=== PATIENT | female | born 1960 | race Caucasian/White ===

== ENCOUNTER 2017-03-07 05:13 | Emergency (ER) | payer OTHER ==
[2017-03-07 05:21] VITALS: BP 135/89; PULSE 74; RESP 18; TEMP 97
--- NOTE | 2017-03-07 05:37 | ED ---
General Adult HPI - General Chief complaint: Wound/Laceration Stated complaint: Open Operation Site Time Seen by Provider: 03/07/17 05:26 Source: patient, family, RN notes reviewed Mode of arrival: ambulatory Limitations: no limitations - History of Present Illness Initial comments: 56 female presents for wound evaluation. Patient had gastric surgery on January 11. This was laparoscopic. 2 weeks after the operation she did have one of her laparoscopic wounds open. His been giving her small amount of pain with some pink drainage. Patient did see her surgeon about this several weeks postoperatively. Over the past 24 hours. There is pain some sharp pain, and clear drainage from the site. No fever or chills. Patient is having normal bowel movements. No vomiting. She has been placing a bandage over the incision. Patient had called her surgeon who recommended ER evaluation as he was not able to visualize the incision. - Related Data Home Medications Medication Instructions Recorded Confirmed Albuterol Inhaler [Ventolin 2 puff INHALATION RT-Q6H PRN 03/07/15 05/22/15 Inhaler] Ascorbic Acid [Vitamin C] 1,000 mg PO DAILY 03/07/15 05/22/15 Cholecalciferol [Vitamin D3] 5,000 unit PO DAILY 03/07/15 05/22/15 Furosemide [Furosemide] 20 mg PO DAILY 03/07/15 05/22/15 LORazepam [LORazepam] 2 mg PO HS 03/07/15 05/22/15 Venlafaxine HCl ER [Effexor XR] 150 mg PO QAM 03/07/15 05/22/15 glipiZIDE [Glipizide] 10 mg PO QAM 03/07/15 05/22/15 Nitroglycerin 1 spray TL Q5M PRN 03/11/15 05/22/15 Heron 1 tab PO DAILY 03/11/15 05/22/15 Venlafaxine HCl [Effexor XR] 75 mg PO QAM 03/11/15 05/22/15 Vits A,C,E/Lutein/Minerals 1 tab PO BID 03/11/15 05/22/15 [Ocuvite with Lutein Tablet] clonazePAM [KlonoPIN] 0.75 mg PO QID 03/11/15 05/22/15 Ferrous Gluconate 325 mg PO DAILY 05/22/15 05/22/15 Potassium Gluconate 99 mg PO DAILY 05/22/15 05/22/15 RABEprazole SODIUM 20 mg PO QAM 05/22/15 05/22/15 Rosuvastatin Calcium [Crestor] 10 mg PO DAILY 05/22/15 05/22/15 lamoTRIgine [LaMICtal] 25 mg PO HS 05/22/15 05/22/15 lamoTRIgine [LaMICtal] 100 mg PO HS 05/22/15 05/22/15 Ferrous Gluconate 324 mg PO DAILY 03/07/17 03/07/17 Trandolapril [Mavik] 1 mg PO DAILY 03/07/17 03/07/17 Previous Rx's Medication Instructions Recorded HYDROcodone/APAP 7.5-325MG [[place] 1 - 2 each PO Q6H PRN #90 tab 03/12/15 7.5-325] HYDROcodone/APAP 10-325MG [[place] 1 - 2 tab PO Q4HR PRN #60 tab 05/26/15 10] Allergies Allergy/AdvReac Type Severity Reaction Status Date / Time codeine Allergy Rash/Hives Verified 03/07/17 05:21 oxycodone HCl [From Percocet] Allergy Itching Verified 03/07/17 05:21 Penicillins Allergy Dyspnea Verified 03/07/17 05:21 Review of Systems ROS Statement: Those systems with pertinent positive or pertinent negative responses have been documented in the HPI. ROS Other: All systems not noted in ROS Statement are negative. Past Medical History Past Medical History: Cancer, Chest Pain / Angina, Diabetes Mellitus, GERD/ Reflux, Hyperlipidemia, Hypertension Additional Past Medical History / Comment(s): HX OF SKIN CA. 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,CURRENTLY HAVING LT KNEE PAIN History of Any Multi-Drug Resistant Organisms: None Reported Past Surgical History: Bariatric Surgery, Cholecystectomy, Hernia Repair, Hysterectomy, Joint Replacement, Orthopedic Surgery Additional Past Surgical History / Comment(s): BASAL CELL CA ON FACE REMOVED, TOTAL RIGHT KNEE, HX OF "STOMACH STAPLING", RT AXILLA GLANDS REMOVED BENIGN, HX OF ARTHROSCOPY LORENZO KNEES,TOT LT KNEE,STOMACH STAPLING Past Anesthesia/Blood Transfusion Reactions: No Reported Reaction Additional Past Anesthesia/Blood Transfusion Reaction / Comment(s): UNK FAMILY HX Past Psychological History: Bipolar, Depression Smoking Status: Never smoker Past Alcohol Use History: None Reported Past Drug Use History: None Reported - Past Family History Brother(s) Family Medical History: Cancer Additional Family Medical History / Comment(s): COLON Mother History Unknown: Yes Family Medical History: Unable to Obtain Additional Family Medical History / Comment(s): PATIENT WAS ADOPTED, DOES NOT KNOW FAMILY HX OTHER THAN BROTHER Father History Unknown: Yes General Exam Limitations: no limitations General appearance: alert, in no apparent distress Head exam: Present: atraumatic, normocephalic Eye exam: Present: normal appearance, PERRL ENT exam: Present: normal exam, mucous membranes moist Neck exam: Present: normal inspection. Absent: tenderness, meningismus Respiratory exam: Present: normal lung sounds bilaterally. Absent: respiratory distress Cardiovascular Exam: Present: regular rate, normal rhythm GI/Abdominal exam: Present: soft. Absent: distended, tenderness (Upper scopic incisions, 3 out of 4 incisions are well healing. Incision in the left upper quadrant does have 2 mm of surrounding erythema, granulation tissue within an open incision. This is approximately 1 cm in length. No signs of infection or surrounding cellulitis) Course Vital Signs 03/07/17 05:16 Temperature 97 F L Pulse Rate 74 Respiratory 18 Rate Blood Pressure 135/89 O2 Sat by Pulse 97 Oximetry Medical Decision Making - Medical Decision Making 56 female presents for evaluation of nonhealing surgical incision. She did have laparoscopic surgery. There is 2 mm of surrounding erythema on the left upper quadrant laparoscopic incision, this wound did dehisce several weeks ago. This is only at the level the skin. There is no surrounding cellulitic changes, no purulent drainage, there is some granulation tissue within. Remainder abdominal examination is unremarkable, patient is afebrile vital signs are stable Patient is informed that this is probably normal healing process. She does have an appointment with her primary care physician in 2 days and will have the wound reevaluated. She is also instructed to follow-up with her surgeon for wound evaluation. Diagnosis: Surgical wound evaluation Disposition Clinical Impression: Surgical wound breakdown Disposition: HOME SELF-CARE Condition: Good Instructions: Wound Dehiscence (ED) Additional Instructions: Return for wound evaluation with worsening erythema, drainage, or fever or chills. Referrals: Carlo Martinez MD [Primary Care Provider] - 1-2 days
== END 2017-03-07 05:44 | disposition home or self-care (01) ==
LOC: EC 05:13
DX: K91.89 Other postprocedural complications and disorders of digestive system (principal); E11.9 Type 2 diabetes mellitus without complications; E78.5 Hyperlipidemia, unspecified; I10 Essential (primary) hypertension; D64.9 Anemia, unspecified; F41.9 Anxiety disorder, unspecified; F32.9 Major depressive disorder, single episode, unspecified; K21.9 Gastro-esophageal reflux disease without esophagitis; Z88.5 Allergy status to narcotic agent; Z88.0 Allergy status to penicillin; Z90.49 Acquired absence of other specified parts of digestive tract; Z85.828 Personal history of other malignant neoplasm of skin; Z79.84 Long term (current) use of oral hypoglycemic drugs; Z79.899 Other long term (current) drug therapy; Y83.8 Other surgical procedures as the cause of abnormal reaction of the patient, or of later complication, without mention of misadventure at the time of the procedure
CPT/HCPCS: 99283

== ENCOUNTER → 2018-01-24 | Outpatient (CLI) | payer OTHER ==
[~2018-01-24] MED LIST: REGADENOSON 0.4 MG/5 ML SYRINGE IV ONE
--- NOTE | 2018-01-24 10:57 | ECHOF ---
Referral Reason:I10 Hypertension, R07.9 Chest pain, R01.1 murmur MEASUREMENTS -------- HEIGHT: 152.4 cm WEIGHT: 96.6 kg BP: RVIDd: 2.4 cm (< 3.3) IVSd: 0.7 cm (0.6 - 1.1) LVIDd: 4.1 cm (3.9 - 5.3) LVPWd: 1.1 cm (0.6 - 1.1) IVSs: 1.1 cm LVIDs: 3.6 cm LVPWs: 0.9 cm LAESV Index (A-L): 28.52 ml/m Ao Diam: 2.7 cm (2.0 - 3.7) AV Cusp: 1.8 cm (1.5 - 2.6) LA Diam: 3.2 cm (2.7 - 3.8) MV EXCURSION: 10.412 mm (> 18.000) MV EF SLOPE: 79 mm/s (70 - 150) EPSS: 0.6 cm MV E Sunday: 0.67 m/s MV A Sunday: 0.73 m/s MV E/A Ratio: 0.91 RAP: 5.00 mmHg RVSP: 17.21 mmHg FINDINGS -------- Sinus rhythm. This was a technically good study. LV size, wall thickness and systolic function are normal, with an EF greater than 55%. The left sylvain tricular size is normal. The right ventricle is normal in size. The left atrial size is normal. The right atrial size is normal. The aortic valve is trileaflet, and appears structurally normal. No aortic stenosis or regurgitation. Mild mitral regurgitation is present. Mild tricuspid regurgitation present. The right ventricular systolic pressure, as measured by Doppl er, is 17.21mmHg. There is no pulmonic regurgitation present. The aortic root size is normal. There is no pericardial effusion. CONCLUSIONS -------- 1. LV size, wall thickness and systolic function are normal, with an EF greater than 55%. 2. The left ventricular size is normal. 3. The right ventricle is normal in size. 4. The left atrial size is normal. 5. The right atrial size is normal. 6. The aortic valve is trileaflet, and appears structurally normal. No aortic stenosis or regurgitati on. 7. Mild mitral regurgitation is present. 8. Mild tricuspid regurgitation present. 9. The right ventricular systolic pressure, as measured by Doppler, is 17.21mmHg. 10. There is no pulmonic regurgitation present. 11. The aortic root size is normal. 12. There is no pericardial effusion. POLE INCISOR OPERATOR: Milena Pickens RDCS
--- NOTE | 2018-01-24 11:25 | EST ---
EXERCISE STRESS AGE: 57 SEX: Female HT: 61" WT: 213 PROTOCOL: Lexiscan Cardiolite STAGE: DURATION OF EXERCISE: HEART RATE REST: 65 BLOOD PRESSURE REST: 101/61 MAXIMUM HEART RATE ACHIEVED: 87 MAXIMUM BLOOD PRESSURE: 120/72 85% MPHR: 100% MPHR: METS: INDICATIONS: History of chest pain. CLINICAL INFORMATION: Baseline heart rate 65 beats per minute. Baseline blood pressure 101/61 mmHg. Baseline 12-lead ECG shows normal sinus rhythm with normal cardiac intervals. Patient received Lexiscan infusion per protocol. There was no significant change in heart rate or blood pressure. She complained of being dizzy and complaining of chest tightness without any ECG abnormalities or any arrhythmias. Nuclear portion of the stress test will be reported separately. MMODL / IJN: [id number] /
--- NOTE | 2018-01-24 11:43 | NM ---
EXAMINATION TYPE: NM stress lexiscan cardiolite DATE OF EXAM: 01/24/2018 COMPARISON: NONE HISTORY: Precordial chest pain, abnormal EKG. TECHNIQUE: After the intravenous administration of 10.7 mCi Tc 99m Sestamibi - Cardiolite resting SP ECT images acquired 50 minutes post injection. The patient received 0.4mg Lexiscan, 24.8 mCi Tc 99m Sestamibi - Stress images obtained [address] injection FINDINGS: Review of stress and rest SPECT images demonstrates no distinct perfusion abnormality. Gated analysi s shows normal wall motion with an estimated left ventricular ejection fraction of 55 %. IMPRESSION: No scintigraphic evidence for reversible ischemia.
== END | disposition home or self-care (01) ==
LOC: RADNMMAIN 07:16
PROVIDERS: ATTEND Family Medicine
DX: I08.1 Rheumatic disorders of both mitral and tricuspid valves (principal); I10 Essential (primary) hypertension
CPT/HCPCS: 93017; 93306; 78452; A9500; J2785

== ENCOUNTER → 2018-02-13 | Outpatient (CLI) | payer OTHER ==
--- NOTE | 2018-02-15 11:58 | MM ---
Reason for exam: screening (asymptomatic). Last mammogram was performed 2 years and 4 months ago. History: Patient is postmenopausal and history of other cancer. Family history of breast cancer in sister at age 32 and breast cancer in sister at age 39. Reductions, 1998. Physical Findings: A clinical breast exam by your physician is recommended on an annual basis and results should be correlated with mammographic findings. MG 3D Screening Mammo W/Cad Bilateral CC and MLO view(s) were taken. Prior study comparison: October 09, 2015, bilateral MG 3d screening mammo w/cad. July 09, 2014, bilateral MG diagnostic mammo w CAD [facility]. There are scattered fibroglandular densities. Scattered focal asymmetries are unchanged. No significant changes when compared with prior studies. ASSESSMENT: Benign, BI-RAD 2 RECOMMENDATION: Routine screening mammogram of both breasts in 1 year.
== END | disposition home or self-care (01) ==
LOC: RADMAMWWP 12:20
PROVIDERS: ATTEND Family Medicine
DX: Z12.31 Encounter for screening mammogram for malignant neoplasm of breast (principal)
CPT/HCPCS: 77063; 77067

== ENCOUNTER 2021-12-01 06:27 | Emergency (ER) | payer OTHER ==
[2021-12-01 06:33] VITALS: RESP 18; TEMP 97.5
[2021-12-01 06:46] LABS: Glucose,Whole Blood 142 mg/dL (75-99)
--- NOTE | 2021-12-01 06:55 | XR ---
EXAMINATION TYPE: XR foot complete RT DATE OF EXAM: 12/01/2021 CLINICAL HISTORY: Pain after injury. TECHNIQUE: Frontal, lateral, and oblique images of the right foot are obtained. COMPARISON: Prior right foot x-ray January 02, 2013 FINDINGS: There is no acute fracture/dislocation evident in the right foot. Some flexion in the toes is present. Slight hallux valgus positioning first metatarsal-phalangeal joint redemonstrated. Small size inferior calcaneal spur redemonstrated. New mild focal soft tissue swelling over the dorsal mayelin face at metatarsal level on lateral view. IMPRESSION: There is no acute fracture or dislocation in the right foot.
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
[2021-12-01 08:41] VITALS: BP 138/71; PULSE 61
== END 2021-12-01 08:40 | disposition home or self-care (01) ==
LOC: EC 06:27
DX: S90.31XA Contusion of right foot, initial encounter (principal); E11.9 Type 2 diabetes mellitus without complications; I10 Essential (primary) hypertension; E78.5 Hyperlipidemia, unspecified; K21.9 Gastro-esophageal reflux disease without esophagitis; Z79.83 Long term (current) use of bisphosphonates; W01.198A Fall on same level from slipping, tripping and stumbling with subsequent striking against other object, initial encounter
CPT/HCPCS: 36415; 99283

== ENCOUNTER 2021-12-31 05:25 | Emergency (ER) | payer OTHER ==
[2021-12-31 05:32] VITALS: BP 120/79; PULSE 70; RESP 20; TEMP 97.7
[2021-12-31] MEDS ORDERED: fentaNYL (PF) 50 MCG/ML 2 ML AMP IM STA (06:12)
--- NOTE | 2021-12-31 06:38 | XR ---
EXAM: XR Right Knee, 2 Views CLINICAL HISTORY: ITS.REASON XR Reason: fall TECHNIQUE: Frontal and lateral views of the right knee. COMPARISON: No relevant prior studies available. FINDINGS: Bones/joints: Total right knee replacement prostheses are in anatomic position. No erosion or joint effusion. No acute fracture. No dislocation. Soft tissues: Unremarkable. IMPRESSION: No acute fracture
--- NOTE | 2021-12-31 06:57 | ED ---
General Adult HPI - General Chief complaint: Extremity Injury, Lower Stated complaint: Leg Swelling Time Seen by Provider: 12/31/21 06:02 Source: patient, RN notes reviewed, old records reviewed Mode of arrival: wheelchair Limitations: no limitations - History of Present Illness Initial comments: 61-year-old female presents to the emergency room with complaints of bilateral knee pain. Patient states that she has chronic knee pain and she has had 2 knee replacements, one in 2012 and another in 2014. She is scheduled to see her orthopedic doctor for revision of both knees. She states that she fell yesterday landing on her right knee which is now swollen. She is using a cane at home, having difficulty with the 10 stairs to her townhouse. She has an appointment with her primary care doctor coming up in January. She was prescribed hydromorphone 1 mg for her chronic pain which she still has but states does not like to take it because it makes her tired. She has tried Tylenol, Motrin, ice and heat with no relief. -: month(s) Location: left, right, lower extremity (knees) Severity scale (1-10): 9 Quality: aching, constant Consistency: constant Improves with: none Worsens with: movement, other (walking) Associated Symptoms: denies other symptoms Treatments Prior to Arrival: NSAID, cold therapy, heat therapy - Related Data Home Medications Medication Instructions Recorded Confirmed Albuterol Inhaler (Mhu) [Ventolin 2 puff INHALATION RT-Q6H PRN 03/07/15 03/07/17 Inhaler] Ascorbic Acid [Vitamin C] 1,000 mg PO DAILY 03/07/15 03/07/17 Cholecalciferol [Vitamin D3] 5,000 unit PO DAILY 03/07/15 03/07/17 Furosemide 20 mg PO DAILY 03/07/15 03/07/17 LORazepam 4 mg PO HS 03/07/15 05/22/15 Venlafaxine HCl ER [Effexor XR] 150 mg PO QAM 03/07/15 05/22/15 glipiZIDE [Glipizide] 30 mg PO QAM 03/07/15 05/22/15 Nitroglycerin 1 spray TL Q5M PRN 03/11/15 03/07/17 Heron 1 tab PO DAILY 03/11/15 03/07/17 Venlafaxine HCl [Effexor XR] 37.5 mg PO QAM 03/11/15 05/22/15 Vits A,C,E/Lutein/Minerals 1 tab PO BID 03/11/15 03/07/17 [Ocuvite with Lutein Tablet] clonazePAM [KlonoPIN] 0.75 mg PO QID 03/11/15 03/07/17 Ferrous Gluconate 325 mg PO DAILY 05/22/15 03/07/17 Potassium Gluconate [Potassium 99 mg PO DAILY 05/22/15 03/07/17 Gluconate ER] RABEprazole SODIUM 20 mg PO QAM 05/22/15 03/07/17 Rosuvastatin Calcium [Crestor] 10 mg PO DAILY 05/22/15 03/07/17 lamoTRIgine [LaMICtal] 25 mg PO QAM 05/22/15 05/22/15 lamoTRIgine [LaMICtal] 100 mg PO QAM 05/22/15 05/22/15 Ferrous Gluconate 324 mg PO DAILY 03/07/17 03/07/17 Trandolapril [Mavik] 1 mg PO DAILY 03/07/17 03/07/17 Previous Rx's Medication Instructions Recorded HYDROcodone/APAP 7.5-325MG [[place] 1 - 2 each PO Q6H PRN #90 tab 03/12/15 7.5-325] HYDROcodone/APAP 10-325MG [[place] 1 - 2 tab PO Q4HR PRN #60 tab 05/26/15 10] Allergies Allergy/AdvReac Type Severity Reaction Status Date / Time codeine Allergy Rash/Hives Verified 12/31/21 05:32 oxycodone HCl [From Percocet] Allergy Itching Verified 12/31/21 05:32 Penicillins Allergy Dyspnea Verified 12/31/21 05:32 Review of Systems ROS Statement: Those systems with pertinent positive or pertinent negative responses have been documented in the HPI. ROS Other: All systems not noted in ROS Statement are negative. Past Medical History Past Medical History: Cancer, Chest Pain / Angina, Diabetes Mellitus, GERD/Reflux, Hyperlipidemia, Hypertension Additional Past Medical History / Comment(s): HX OF SKIN CA. 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,CURRENTLY HAVING LT KNEE PAIN History of Any Multi-Drug Resistant Organisms: None Reported Past Surgical History: Bariatric Surgery, Cholecystectomy, Hernia Repair, Hysterectomy, Joint Replacement, Orthopedic Surgery Additional Past Surgical History / Comment(s): BASAL CELL CA ON FACE REMOVED, TOTAL RIGHT KNEE, HX OF "STOMACH STAPLING", RT AXILLA GLANDS REMOVED BENIGN, HX OF ARTHROSCOPY LORENZO KNEES,TOT LT KNEE,STOMACH STAPLING Past Anesthesia/Blood Transfusion Reactions: No Reported Reaction Additional Past Anesthesia/Blood Transfusion Reaction / Comment(s): UNK FAMILY HX Past Psychological History: Bipolar, Depression Smoking Status: Never smoker Past Alcohol Use History: None Reported Past Drug Use History: None Reported - Past Family History Brother(s) Family Medical History: Cancer Additional Family Medical History / Comment(s): COLON Mother History Unknown: Yes Family Medical History: Unable to Obtain Additional Family Medical History / Comment(s): PATIENT WAS ADOPTED, DOES NOT KNOW FAMILY HX OTHER THAN BROTHER Father History Unknown: Yes General Exam Limitations: no limitations General appearance: alert, in no apparent distress ENT exam: Present: normal oropharynx, mucous membranes moist Respiratory exam: Present: normal lung sounds bilaterally. Absent: respiratory distress, accessory muscle use Cardiovascular Exam: Present: regular rate Right Knee exam: Present: tenderness, swelling, full knee extension. Absent: abrasion, laceration, ecchymosis, dislocation, erythema, effusion Lower Leg exam: Present: normal inspection Ankle exam: Present: normal inspection Foot/Toe exam: Present: normal inspection Neurovascular tendon exam: Present: no vascular compromise. Absent: abnormal cap refill, extremity cold to touch, pallor, foot drop Left Knee exam: Present: tenderness, full knee extension. Absent: swelling, abrasion, laceration, ecchymosis, erythema, effusion Lower Leg exam: Present: normal inspection Ankle exam: Present: normal inspection Foot/Toe exam: Present: normal inspection Neurovascular tendon exam: Present: no vascular compromise. Absent: abnormal cap refill, extremity cold to touch, pallor, foot drop Gait: observed and normal Neurological exam: Present: alert, oriented X3, normal gait Psychiatric exam: Present: normal affect, normal mood Skin exam: Present: warm, dry, normal color. Absent: cyanosis, diaphoretic Course Vital Signs 12/31/21 05:27 Temperature 97.7 F Pulse Rate 70 Respiratory 20 Rate Blood Pressure 120/79 O2 Sat by Pulse 96 Oximetry Medical Decision Making - Medical Decision Making X-ray shows no acute fracture of the right knee. No joint effusion noted. Patient was given pain medication in the emergency room and states that she has relief of her pain at this time. Patient was directed to continue taking the pain medication as prescribed by her doctor, hydromorphone 1 mg. She was encouraged to take Tylenol and Motrin and use hydromorphone for severe pain only since she states it makes her tired. She is directed not to drive or operate heavy machinery when taking her Dilaudid. She states that she was calling a taxi to get home today. She was encouraged to discuss with her doctor physical therapy. She was directed to rest and use her cane and keep her appointment as scheduled with her orthopedic doctor at the end of the month and her primary care doctor in January for continuation of care. Patient is agreeable to this plan of care. Case discussed Dr. Camacho Disposition Clinical Impression: Chronic knee pain Disposition: HOME SELF-CARE Condition: Good Instructions (If sedation given, give patient instructions): Knee Pain (ED) Additional Instructions: Continue taking Tylenol and Motrin for pain and use hydromorphone as prescribed by your doctor for severe pain only since it makes you tired. Rest and use your cane for support when walking. Keep your appointment as scheduled with your orthopedic doctor for continuation of care. Is patient prescribed a controlled substance at d/c from ED?: No Referrals: Wade Kemp MD [Primary Care Provider] - 1-2 days Time of Disposition: 07:28
== END 2021-12-31 08:30 | disposition home or self-care (01) ==
LOC: EC 05:25
DX: G89.29 Other chronic pain (principal); M25.561 Pain in right knee; E11.9 Type 2 diabetes mellitus without complications; I10 Essential (primary) hypertension; E78.5 Hyperlipidemia, unspecified; K21.9 Gastro-esophageal reflux disease without esophagitis; Z88.5 Allergy status to narcotic agent; Z88.0 Allergy status to penicillin; Z79.899 Other long term (current) drug therapy; Z79.84 Long term (current) use of oral hypoglycemic drugs
CPT/HCPCS: 73562; 99283; 96372; J3010; 96374

== ENCOUNTER 2022-02-05 16:24 | Observation (INO) | payer OTHER ==
[2022-02-05] MEDS ORDERED: NITROGLYCERIN OINT 1 INCH/GM PACKET TOPICAL STA (17:05)
[2022-02-05] MEDS ORDERED: ASPIRIN 81 MG PO STA (17:05)
--- NOTE | 2022-02-05 17:16 | ED ---
General Adult HPI - General Chief complaint: Chest Pain Stated complaint: abnormal EKG Time Seen by Provider: 02/05/22 16:45 Source: patient, RN notes reviewed, old records reviewed Mode of arrival: ambulatory Limitations: no limitations - History of Present Illness Initial comments: This is a 61-year-old female who presents emergency Department with chest pain intermittently all day. Patient states the pain is definitely worse with exertion. Patient states she's also short of breath when she exerts herself. Patient states she's been told in the past she's had a heart attack she is a diabetic and does have high blood pressure high cholesterol. Patient denies any smoking history. Patient denies any recent fever chills or cough per patient st ates she's fully vaccinated for COVID. Patient states while she lies in bed here she still feels a little bit of pressure but it is not as significant as it is when she is up and exerting herself. Patient states the pain sometimes radiates to her back. She denies any abdominal pain. Patient denies any nausea or vomiting. Patient denies any lightheadedness dizziness or near syncopal episode. Patient denies any swelling to the leg swelling or calf tenderness. - Related Data Home Medications Medication Instructions Recorded Confirmed Albuterol Inhaler [Ventolin 2 puff INHALATION RT-Q6H PRN 03/07/15 03/07/17 Inhaler] Ascorbic Acid [Vitamin C] 1,000 mg PO DAILY 03/07/15 03/07/17 Cholecalciferol [Vitamin D3] 5,000 unit PO DAILY 03/07/15 03/07/17 Furosemide 20 mg PO DAILY 03/07/15 03/07/17 LORazepam 4 mg PO HS 03/07/15 05/22/15 Venlafaxine HCl ER [Effexor XR] 150 mg PO QAM 03/07/15 05/22/15 glipiZIDE [Glipizide] 30 mg PO QAM 03/07/15 05/22/15 Nitroglycerin 1 spray TL Q5M PRN 03/11/15 03/07/17 [place] 1 tab PO DAILY 03/11/15 03/07/17 Venlafaxine HCl [Effexor XR] 37.5 mg PO QAM 03/11/15 05/22/15 Vits A,C,E/Lutein/Minerals 1 tab PO BID 03/11/15 03/07/17 [Ocuvite with Lutein Tablet] clonazePAM [KlonoPIN] 0.75 mg PO QID 03/11/15 03/07/17 Ferrous Gluconate 325 mg PO DAILY 05/22/15 03/07/17 Potassium Gluconate [Potassium 99 mg PO DAILY 05/22/15 03/07/17 Gluconate ER] RABEprazole SODIUM 20 mg PO QAM 05/22/15 03/07/17 Rosuvastatin Calcium [Crestor] 10 mg PO DAILY 05/22/15 03/07/17 lamoTRIgine [LaMICtal] 25 mg PO QAM 05/22/15 05/22/15 lamoTRIgine [LaMICtal] 100 mg PO QAM 05/22/15 05/22/15 Ferrous Gluconate 324 mg PO DAILY 03/07/17 03/07/17 Trandolapril [Mavik] 1 mg PO DAILY 03/07/17 03/07/17 Previous Rx's Medication Instructions Recorded HYDROcodone/APAP 7.5-325MG [[place] 1 - 2 each PO Q6H PRN #90 tab 03/12/15 7.5-325] HYDROcodone/APAP 10-325MG [[place] 1 - 2 tab PO Q4HR PRN #60 tab 05/26/15 10] Allergies Allergy/AdvReac Type Severity Reaction Status Date / Time codeine Allergy Rash/Hives Verified 02/05/22 16:45 oxycodone HCl [From Percocet] Allergy Itching Verified 02/05/22 16:45 Penicillins Allergy Dyspnea Verified 02/05/22 16:45 Review of Systems ROS Statement: Those systems with pertinent positive or pertinent negative responses have been documented in the HPI. ROS Other: All systems not noted in ROS Statement are negative. Past Medical History Past Medical History: Cancer, Chest Pain / Angina, Diabetes Mellitus, GERD/Reflux, Hyperlipidemia, Hypertension Additional Past Medical History / Comment(s): HX OF SKIN CA. 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,CURRENTLY HAVING LT KNEE PAIN History of Any Multi-Drug Resistant Organisms: None Reported Past Surgical History: Bariatric Surgery, Cholecystectomy, Hernia Repair, Hysterectomy, Joint Replacement, Orthopedic Surgery Additional Past Surgical History / Comment(s): BASAL CELL CA ON FACE REMOVED, TOTAL RIGHT KNEE, HX OF "STOMACH STAPLING", RT AXILLA GLANDS REMOVED BENIGN, HX OF ARTHROSCOPY LORENZO KNEES,TOT LT KNEE,STOMACH STAPLING Past Anesthesia/Blood Transfusion Reactions: No Reported Reaction Additional Past Anesthesia/Blood Transfusion Reaction / Comment(s): UNK FAMILY HX Past Psychological History: Bipolar, Depression Smoking Status: Never smoker Past Alcohol Use History: None Reported Past Drug Use History: None Reported - Past Family History Brother(s) Family Medical History: Cancer Additional Family Medical History / Comment(s): COLON Mother History Unknown: Yes Family Medical History: Unable to Obtain Additional Family Medical History / Comment(s): PATIENT WAS ADOPTED, DOES NOT KNOW FAMILY HX OTHER THAN BROTHER Father History Unknown: Yes General Exam - General Exam Comments Initial Comments: GENERAL: Patient is well-developed and well-nourished. Patient is nontoxic and well- hydrated and is in mild distress. ENT: Neck is soft and supple. No significant lymphadenopathy is noted. Oropharynx is clear. Moist mucous membranes. Neck has full range of motion without el iciting any pain. EYES: The sclera were anicteric and conjunctiva were pink and moist. Extraocular movements were intact and pupils were equal round and reactive to light. Eyelids were unremarkable. PULMONARY: Unlabored respirations. Good breath sounds bilaterally. No audible rales rhonchi or wheezing was noted. CARDIOVASCULAR: There is a regular rate and rhythm without any murmurs gallops or rubs. ABDOMEN: Soft and nontender with normal bowel sounds. SKIN: Skin is clear with no lesions or rashes and otherwise unremarkable. NEUROLOGIC: Patient is alert and oriented x3. Cranial nerves II through XII are grossly intact. Motor and sensory are also intact. Normal speech, volume and content. Symmetrical smile. MUSCULOSKELETAL: Normal extremities with adequate strength and full range of motion. No lower extremity swelling or edema. No calf tenderness. LYMPHATICS: No significant lymphadenopathy is noted PSYCHIATRIC: Normal psychiatric evaluation. Limitations: no limitations Course Vital Signs 02/05/22 16:43 Temperature 98.3 F Pulse Rate 67 Respiratory 20 Rate Blood Pressure 155/82 O2 Sat by Pulse 96 Oximetry Medical Decision Making - Medical Decision Making EKG shows sinus rhythm at 69 bpm [place] interval 141 QRS is under 12 QT interval 410 QTC is 4:30. Patient's EKG shows no ST segment elevation or depression however there is T-wave inversions in V1 and V2. Chest x-ray shows no acute abnormality. I spoke with [facility] admitted to hospice he agreed to admit the patient admitted the patient wrote admitting her to consult cardiology - Lab Data Result diagrams: 02/05/22 17:42 02/05/22 17:42 Lab Results 02/05/22 02/05/22 02/05/22 Range/Units 17:42 17:42 17:42 WBC 6.6 (3.8-10.6) k/uL RBC 4.70 (3.80-5.40) m/uL Hgb 14.2 (11.4-16.0) gm/dL Hct 42.6 (34.0-46.0) % MCV 90.7 (80.0-100.0) fL MCH 30.1 (25.0-35.0) pg MCHC 33.2 (31.0-37.0) g/dL RDW 13.1 (11.5-15.5) % Plt Count 252 (150-450) k/uL MPV 6.7 Neutrophils % 57 % Lymphocytes % 35 % Monocytes % 4 % Eosinophils % 2 % Basophils % 1 % Neutrophils # 3.8 (1.3-7.7) k/uL Lymphocytes # 2.3 (1.0-4.8) k/uL Monocytes # 0.2 (0-1.0) k/uL Eosinophils # 0.2 (0-0.7) k/uL Basophils # 0.0 (0-0.2) k/uL PT 10.1 (9.0-12.0) sec INR 0.9 (<1.2) APTT 25.0 (22.0-30.0) sec Sodium 141 (137-145) mmol/L Potassium 3.9 (3.5-5.1) mmol/L Chloride 106 (98-107) mmol/L Carbon Dioxide 29 (22-30) mmol/L Anion Gap 6 mmol/L BUN 14 (7-17) mg/dL Creatinine 0.69 (0.52-1.04) mg/dL Est GFR (CKD-EPI)AfAm >90 (>60 ml/min/1.73 sqM) Est GFR (CKD-EPI)NonAf >90 (>60 ml/min/1.73 sqM) Glucose 97 (74-99) mg/dL Calcium 9.5 (8.4-10.2) mg/dL Magnesium 1.9 (1.6-2.3) mg/dL Total Bilirubin 0.5 (0.2-1.3) mg/dL AST 20 (14-36) U/L ALT 15 (4-34) U/L Alkaline Phosphatase 87 (38-126) U/L Troponin I (0.000-0.034) ng/mL Total Protein 7.1 (6.3-8.2) g/dL Albumin 4.2 (3.5-5.0) g/dL 02/05/22 Range/Units 17:42 WBC (3.8-10.6) k/uL RBC (3.80-5.40) m/uL Hgb (11.4-16.0) gm/dL Hct (34.0-46.0) % MCV (80.0-100.0) fL MCH (25.0-35.0) pg MCHC (31.0-37.0) g/dL RDW (11.5-15.5) % Plt Count (150-450) k/uL MPV Neutrophils % % Lymphocytes % % Monocytes % % Eosinophils % % Basophils % % Neutrophils # (1.3-7.7) k/uL Lymphocytes # (1.0-4.8) k/uL Monocytes # (0-1.0) k/uL Eosinophils # (0-0.7) k/uL Basophils # (0-0.2) k/uL PT (9.0-12.0) sec INR (<1.2) APTT (22.0-30.0) sec Sodium (137-145) mmol/L Potassium (3.5-5.1) mmol/L Chloride (98-107) mmol/L Carbon Dioxide (22-30) mmol/L Anion Gap mmol/L BUN (7-17) mg/dL Creatinine (0.52-1.04) mg/dL Est GFR (CKD-EPI)AfAm (>60 ml/min/1.73 sqM) Est GFR (CKD-EPI)NonAf (>60 ml/min/1.73 sqM) Glucose (74-99) mg/dL Calcium (8.4-10.2) mg/dL Magnesium (1.6-2.3) mg/dL Total Bilirubin (0.2-1.3) mg/dL AST (14-36) U/L ALT (4-34) U/L Alkaline Phosphatase (38-126) U/L Troponin I <0.012 (0.000-0.034) ng/mL Total Protein (6.3-8.2) g/dL Albumin (3.5-5.0) g/dL Disposition Clinical Impression: Chest pain Disposition: ADMITTED IP TO THIS HOSP Referrals: Wade Kemp MD [Primary Care Provider] - 1-2 days Time of Disposition: 18:17
[2022-02-05 17:52] LABS: Basophils % (A) 1 %; Eosinophils # (A) 0.2 k/uL (0-0.7); Eosinophils % (A) 2 %; HCT 42.6 % (34.0-46.0); HGB 14.2 gm/dL (11.4-16.0); Lymphocytes # (A) 2.3 k/uL (1.0-4.8); Lymphocytes % (A) 35 %; MCH 30.1 pg (25.0-35.0); MCHC 33.2 g/dL (31.0-37.0); MCV 90.7 fL (80.0-100.0); Mean Platelet Volume 6.7; Monocytes # (A) 0.2 k/uL (0-1.0); Monocytes % (A) 4 %; Neutrophils # (A) 3.8 k/uL (1.3-7.7); Neutrophils % (A) 57 %; Platelet Count 252 k/uL (150-450); RDW 13.1 % (11.5-15.5); WBC 6.6 k/uL (3.8-10.6)
--- NOTE | 2022-02-05 17:55 | XR ---
EXAMINATION TYPE: XR chest 2V DATE OF EXAM: 02/05/2022 COMPARISON: NONE HISTORY: Chest pain TECHNIQUE: 2 views FINDINGS: Heart and mediastinum are normal. There is some linear density on the lateral view there is probably some atelectasis in the right middle lobe. The other lung garcia are clear. IMPRESSION: There is some minimal atelectasis in the right middle lobe. Normal heart.
[2022-02-05 18:01] LABS: ALT 15 U/L (4-34); AST 20 U/L (14-36); African American GFR (CKD) >90 (>60 ml/min/1.73 sqM); Albumin 4.2 g/dL (3.5-5.0); Alkaline Phosphatase 87 U/L (38-126); Anion Gap 6 mmol/L; Blood Urea Nitrogen 14 mg/dL (7-17); Calcium 9.5 mg/dL (8.4-10.2); Carbon Dioxide 29 mmol/L (22-30); Chloride 106 mmol/L (98-107); Glucose 97 mg/dL (74-99); Magnesium 1.9 mg/dL (1.6-2.3); Non-African American GFR(CKD) >90 (>60 ml/min/1.73 sqM); Potassium 3.9 mmol/L (3.5-5.1); Sodium 141 mmol/L (137-145); Total Bilirubin 0.5 mg/dL (0.2-1.3); Total Protein 7.1 g/dL (6.3-8.2)
[2022-02-05 18:02] LABS: INR 0.9 (<1.2); Prothrombin Time 10.1 sec (9.0-12.0)
[2022-02-05] MEDS ORDERED: NITROGLYCERIN SL TABS 0.4 MG TAB SUBLINGUAL PRN (18:18)
[2022-02-05] MEDS: GABAPENTIN 100 MG CAP PO SCH (22:22)
[2022-02-05] MEDS: NITROGLYCERIN OINT 1 INCH/GM PACKET TOPICAL SCH (22:36)
[2022-02-06] MEDS: NITROGLYCERIN OINT 1 INCH/GM PACKET TOPICAL SCH ×3 (06:32→18:32)
--- NOTE | 2022-02-06 08:53 | P.CRDCN ---
History of Present Illness Consult reason: chest pain History of present illness: 61-year-old lady comes to Hospital complaining of precordial chest pain. She describes it as precordial chest pressure mild to moderate intensity without definite radiation to neck, back. This discomfort started on Tuesday got worse saw her primary care physician in the office yesterday who is nervous drove her to the emergency room. Patient appears comfortable at rest evident dynamically stable and has some pleuritic nature to her chest pain. Patient used to live in [place] in the past that she had extensive workup for her chest pain including the stress test echocardiogram and apparently a cardiac catheterization more than 5 years ago and was told she does not have significant obstructive CAD but has mitral and tricuspid regurgitation. She was admitted to hospital here in 2018 and at that time had a Lexiscan that did not reveal any ischemia. She has not had any other cardiac workup. This admission the EKG shows sinus rh ythm with T-wave inversions in V1 and V2 3 sets of cardiac enzymes are negative Patient has history of [id number] diabetes. Along with dyslipidemia. I'm going to obtain a 2-D echo on her to evaluate her LV function to rule out any pericardial disease assess the aortic root and check a d-dimer to rule out pulmonary embolism. We'll ambulate her and see how she does. He is doing well she can be discharged home and scheduled her for an outpatient stress test. If he can't she continues to have symptoms I will perform a stress test here on Tuesday. Constitutional: Denies chills. Denies fever. Eyes: Denies blurred vision. Denies pain. Ears, nose, mouth and throat: Denies headache. Denies sore throat. Cardiovascular: Significant for chest pain. Denies shortness of breath. Respiratory: Denies cough. Gastrointestinal: Denies abdominal pain. Denies diarrhea. Denies nausea. Denies vomiting. Musculoskeletal: Denies myalgias. Integumentary: Denies pruritus. Denies rash. Neurological: Denies numbness. Denies weakness. Psychiatric: Denies anxiety. Denies depression. Endocrine: Denies fatigue. Denies weight change. Genitourinary: Denies burning, hematuria, frequency of urination. Hematological: No anemia or excess bleeding. General: The patient is awake and alert, in no distress, and does not appear acutely ill. Skin: Skin is warm and dry and no rashes or lesions are noted. Eye: Pupils are equal, round and reactive to light, extra-ocular movements are intact; there is normal conjunctiva bilaterally. Ears, nose, mouth and throat: There are moist mucous membranes and no oral lesions. Neck: The neck is supple, there is no tenderness or JVD. Cardiovascular: There is a systolic murmur at the apex There is a regular rate and rhythm. No , rub or gallop is appreciated. Respiratory: Lungs are clear to auscultation, respirations are non-labored, breath sounds are equal. Gastrointestinal: Soft, non-distended, non-tender abdomen without masses or organomegaly noted. There is no rebound or guarding present. Bowel sounds are unremarkable. Back: There is no tenderness to palpation in the midline. There is no obvious deformity. Musculoskeletal: Normal ROM, no tenderness, There is no pedal edema. There is no calf tenderness or swelling. Extremities: No edema. Vascular: Femoral pulse is normal. Posterior tibial pulses are normal .Dorsalis pedis is palpable. Neurological: CN II-XII intact. There are no obvious motor or sensory deficits. Speech is normal. Psychiatric: Cooperative, appropriate mood & affect, normal judgment. Labs: 3 sets of cardiac enzymes are negative EKG shows T-wave inversions in V1 and V2 D-dimer has been ordered 2-D echo has been ordered Assessment and plan: Precordial chest pain Vms-skkkzle-qhiabfviu diabetes Dyslipidemia Myocardial infarction has been ruled out chest discomfort seems atypical We will await the workup that we have initiated Past Medical History Past Medical History: Cancer, Chest Pain / Angina, Diabetes Mellitus, GERD/Reflux, Hyperlipidemia, Hypertension Additional Past Medical History / Comment(s): HX OF SKIN CA. 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,CURRENTLY HAVING LT KNEE PAIN History of Any Multi-Drug Resistant Organisms: None Reported Past Surgical History: Bariatric Surgery, Cholecystectomy, Hernia Repair, Hysterectomy, Joint Replacement, Orthopedic Surgery Additional Past Surgical History / Comment(s): BASAL CELL CA ON FACE REMOVED, TOTAL RIGHT KNEE, HX OF "STOMACH STAPLING", RT AXILLA GLANDS REMOVED BENIGN, HX OF ARTHROSCOPY LORENZO KNEES,TOT LT KNEE,STOMACH STAPLING Past Anesthesia/Blood Transfusion Reactions: No Reported Reaction Additional Past Anesthesia/Blood Transfusion Reaction / Comment(s): UNK FAMILY HX Past Psychological History: Bipolar, Depression Smoking Status: Never smoker Past Alcohol Use History: None Reported Past Drug Use History: None Reported - Past Family History Brother(s) Family Medical History: Cancer Additional Family Medical History / Comment(s): COLON Mother History Unknown: Yes Family Medical History: Unable to Obtain Additional Family Medical History / Comment(s): PATIENT WAS ADOPTED, DOES NOT KNOW FAMILY HX OTHER THAN BROTHER Father History Unknown: Yes Medications and Allergies Home Medications Medication Instructions Recorded Confirmed Type Furosemide 20 mg PO DAILY 03/07/15 02/05/22 History glipiZIDE [Glipizide] 20 mg PO DAILY 03/07/15 02/05/22 History Rosuvastatin Calcium [Crestor] 10 mg PO DAILY@1200 05/22/15 02/05/22 History lamoTRIgine [LaMICtal] 25 mg PO DAILY 05/22/15 02/05/22 History lamoTRIgine [LaMICtal] 100 mg PO DAILY 05/22/15 02/05/22 History Acetaminophen [Tylenol Extra 1,500 mg PO Q6H PRN 02/05/22 02/05/22 History Strength] Diclofenac Sodium Gel [Voltaren 1 applic TOPICAL TID PRN 02/05/22 02/05/22 History Gel] Ferrous Sulfate [Iron] 325 mg PO DAILY@1200 02/05/22 02/05/22 History Gabapentin [Neurontin] 100 mg PO TID 02/05/22 02/05/22 History Menthol [Biofreeze] 1 applic TOPICAL TID PRN 02/05/22 02/05/22 History Sertraline [Zoloft] 25 mg PO DAILY 02/05/22 02/05/22 History Spironolactone 25 mg PO DAILY 02/05/22 02/05/22 History Allergies Allergy/AdvReac Type Severity Reaction Status Date / Time codeine Allergy Rash/Hives Verified 02/05/22 18:32 oxycodone HCl [From Percocet] Allergy Itching Verified 02/05/22 18:32 Penicillins Allergy Anaphylaxis Verified 02/05/22 18:32 Physical Exam Vitals: Vital Signs Temp Pulse Pulse Resp BP BP Pulse Ox 02/06/22 07:14 97.8 F 70 17 102/60 89 L 02/06/22 02:25 98.1 F 55 L 16 97/55 93 L 02/05/22 21:21 97.3 F L 54 L 17 102/60 94 L 02/05/22 20:00 59 L 18 110/73 93 L 02/05/22 16:43 98.3 F 67 20 155/82 96 Intake and Output 02/05/22 02/06/22 02/06/22 22:59 06:59 14:59 Other: # Voids 1 2 Weight 104.326 kg Results 02/05/22 17:42 02/05/22 17:42 Cardiac Enzymes 02/05/22 02/05/22 02/05/22 Range/Units 17:42 17:42 18:39 AST 20 (14-36) U/L Troponin I <0.012 <0.012 (0.000-0.034) ng/mL 02/05/22 Range/Units 23:18 AST (14-36) U/L Troponin I <0.012 (0.000-0.034) ng/mL Coagulation 02/05/22 Range/Units 17:42 PT 10.1 (9.0-12.0) sec APTT 25.0 (22.0-30.0) sec CBC 02/05/22 Range/Units 17:42 WBC 6.6 (3.8-10.6) k/uL RBC 4.70 (3.80-5.40) m/uL Hgb 14.2 (11.4-16.0) gm/dL Hct 42.6 (34.0-46.0) % Plt Count 252 (150-450) k/uL Comprehensive Metabolic Panel 02/05/22 Range/Units 17:42 Sodium 141 (137-145) mmol/L Potassium 3.9 (3.5-5.1) mmol/L Chloride 106 (98-107) mmol/L Carbon Dioxide 29 (22-30) mmol/L BUN 14 (7-17) mg/dL Creatinine 0.69 (0.52-1.04) mg/dL Glucose 97 (74-99) mg/dL Calcium 9.5 (8.4-10.2) mg/dL AST 20 (14-36) U/L ALT 15 (4-34) U/L Alkaline Phosphatase 87 (38-126) U/L Total Protein 7.1 (6.3-8.2) g/dL Albumin 4.2 (3.5-5.0) g/dL Current Medications Generic Name Dose Route Start Last Admin Trade Name Carter PRN Reason Stop Dose Admin Aspirin 325 mg 02/06/22 09:00 Aspirin 325 Mg Tab PO DAILY [facility] Atorvastatin Calcium 20 mg 02/06/22 12:00 Atorvastatin 20 Mg Tab PO DAILY@1200 [facility] Ferrous Sulfate 325 mg 02/06/22 12:00 Ferrous Sulfate 325 Mg Tab PO DAILY@1200 [facility] Furosemide 20 mg 02/06/22 09:00 Furosemide 20 Mg Tab PO DAILY [facility] Gabapentin 100 mg 02/05/22 22:00 02/05/22 22:22 Gabapentin 100 Mg Cap PO 100 mg TID [facility] Administration Lamotrigine 25 mg 02/06/22 09:00 Lamotrigine 25 Mg Tab PO DAILY [facility] Lamotrigine 100 mg 02/06/22 09:00 Lamotrigine 100 Mg Tab PO DAILY [facility] Nitroglycerin 0.4 mg 02/05/22 18:18 Nitroglycerin Sl Tabs 0.4 Mg Tab SUBLINGUAL Q5M PRN Chest Pain Nitroglycerin 1 inch 02/06/22 00:00 02/06/22 06:32 Nitroglycerin Oint 1 Inch/Gm Packet TOPICAL Not Given Q6HR [facility] Sertraline HCl 25 mg 02/06/22 09:00 Sertraline 25 Mg Tab PO DAILY [facility] Spironolactone 25 mg 02/06/22 09:00 Spironolactone 25 Mg Tab PO DAILY [facility] Intake and Output 02/05/22 02/06/22 02/06/22 22:59 06:59 14:59 Other: # Voids 1 2 Weight 104.326 kg 02/05/22 17:42 02/05/22 17:42
[2022-02-06 09:44] LABS: African American GFR (CKD) 108.4 (60.0-200.0); BUN/Creat Ratio 19.57 Ratio (12.00-20.00); Blood Urea Nitrogen 13.7 mg/dL (9.0-27.0); Calcium 9.1 mg/dL (8.7-10.3); Carbon Dioxide 24.5 mmol/L (20.0-27.5); Chloride 107 mmol/L (96-109); Chol/HDL Ratio 3.63 Ratio; Glucose 88 mg/dL (70-110); LDL Cholesterol,Calculated 72.6 mg/dL (0.0-131.0); Non-African American GFR(CKD) 93.5 (60.0-200.0); Potassium 3.4 mmol/L (3.5-5.5); Sodium 144 mmol/L (135-145)
--- NOTE | 2022-02-06 09:51 | P.HPIM ---
History of Present Illness H&P Date: 02/05/22 Chief Complaint: Chest pain 61-year-old female who presents emergency Department with chest pain intermittently all day. Patient states the pain is definitely worse with exe rtion. Patient states she's also short of breath when she exerts herself. Patient states she's been told in the past she's had a heart attack she is a diabetic and does have high blood pressure high cholesterol. Patient denies any smoking history. Patient denies any recent fever chills or cough per patient states she's fully vaccinated for COVID. Patient states while she lies in bed here she still feels a little bit of pressure but it is not as significant as it is when she is up and exerting herself. Patient states the pain sometimes radiates to her back. She denies any abdominal pain. Patient denies any nausea or vomiting. Patient denies any lightheadedness dizziness or near syncopal episode. Patient denies any swelling to the leg swelling or calf tenderness. Patient used to live in [place] in the past that she had extensive workup for her chest pain including the stress test echocardiogram and apparently a cardiac catheterization more than 5 years ago and was told she does not have significant obstructive CAD but has mitral and tricuspid regurgitation. She was admitted to hospital here in 2018 and at that time had a Lexiscan that did not reveal any ischemia. She has not had any other cardiac workup. EKG shows sinus rhythm at 69 bpm ME interval 141 QRS is under 12 QT interval 410 QTC is 4:30. Patient's EKG shows no ST segment elevation or depression however there is T-wave inversions in V1 and V2. Chest x-ray shows no acute abnormality. Review of Systems REVIEW OF SYSTEMS: CONSTITUTIONAL: No fever, no malaise, no fatigue. HEENT: No recent visual problems or hearing problems. Denied any sore throat. CARDIOVASCULAR: No chest pain, orthopnea, PND, no palpitations, no syncope. PULMONARY: No shortness of breath, no cough, no hemoptysis. GASTROINTESTINAL: No diarrhea, no nausea, no vomiting, no abdominal pain. NEUROLOGICAL: No headaches, no weakness, no numbness. HEMATOLOGICAL: Denies any bleeding or petechiae. GENITOURINARY: Denies any burning micturition, frequency, or urgency. MUSCULOSKELETAL/RHEUMATOLOGICAL: Denies any joint pain, swelling, or any muscle pain. ENDOCRINE: Denies any polyuria or polydipsia. The rest of the 14-point review of systems is negative. Past Medical History Past Medical History: Cancer, Chest Pain / Angina, Diabetes Mellitus, GERD/Reflux, Hyperlipidemia, Hypertension Additional Past Medical History / Comment(s): HX OF SKIN CA. 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,CURRENTLY HAVING LT KNEE PAIN History of Any Multi-Drug Resistant Organisms: None Reported Past Surgical History: Bariatric Surgery, Cholecystectomy, Hernia Repair, Hysterectomy, Joint Replacement, Orthopedic Surgery Additional Past Surgical History / Comment(s): BASAL CELL CA ON FACE REMOVED, TOTAL RIGHT KNEE, HX OF "STOMACH STAPLING", RT AXILLA GLANDS REMOVED BENIGN, HX OF ARTHROSCOPY LORENZO KNEES,TOT LT KNEE,STOMACH STAPLING Past Anesthesia/Blood Transfusion Reactions: No Reported Reaction Additional Past Anesthesia/Blood Transfusion Reaction / Comment(s): UNK FAMILY HX Past Psychological History: Bipolar, Depression Smoking Status: Never smoker Past Alcohol Use History: None Reported Past Drug Use History: None Reported - Past Family History Brother(s) Family Medical History: Cancer Additional Family Medical History / Comment(s): COLON Mother History Unknown: Yes Family Medical History: Unable to Obtain Additional Family Medical History / Comment(s): PATIENT WAS ADOPTED, DOES NOT KNOW FAMILY HX OTHER THAN BROTHER Father History Unknown: Yes Medications and Allergies Home Medications Medication Instructions Recorded Confirmed Type Furosemide 20 mg PO DAILY 03/07/15 02/05/22 History glipiZIDE [Glipizide] 20 mg PO DAILY 03/07/15 02/05/22 History Rosuvastatin Calcium [Crestor] 10 mg PO DAILY@1200 05/22/15 02/05/22 History lamoTRIgine [LaMICtal] 25 mg PO DAILY 05/22/15 02/05/22 History lamoTRIgine [LaMICtal] 100 mg PO DAILY 05/22/15 02/05/22 History Acetaminophen [Tylenol Extra 1,500 mg PO Q6H PRN 02/05/22 02/05/22 History Strength] Diclofenac Sodium Gel [Voltaren 1 applic TOPICAL TID PRN 02/05/22 02/05/22 History Gel] Ferrous Sulfate [Iron] 325 mg PO DAILY@1200 02/05/22 02/05/22 History Gabapentin [Neurontin] 100 mg PO TID 02/05/22 02/05/22 History Menthol [Biofreeze] 1 applic TOPICAL TID PRN 02/05/22 02/05/22 History Sertraline [Zoloft] 25 mg PO DAILY 02/05/22 02/05/22 History Spironolactone 25 mg PO DAILY 02/05/22 02/05/22 History Allergies Allergy/AdvReac Type Severity Reaction Status Date / Time codeine Allergy Rash/Hives Verified 02/05/22 18:32 oxycodone HCl [From Percocet] Allergy Itching Verified 02/05/22 18:32 Penicillins Allergy Anaphylaxis Verified 02/05/22 18:32 Physical Exam Vitals: Vital Signs Temp Pulse Resp BP Pulse Ox 02/05/22 16:43 98.3 F 67 20 155/82 96 Intake and Output 02/05/22 02/05/22 02/05/22 06:59 14:59 22:59 Other: Weight 104.326 kg - Constitutional General appearance: Present: average body habitus, cooperative, no acute distress - EENT Eyes: Present: anicteric sclerae, EOMI, PERRLA, normal appearance ENT: Present: hearing grossly normal, normal oropharynx Ears: bilateral: normal - Neck Neck: Present: normal ROM. Absent: lymphadenopathy, rigidity, thyromegaly Carotids: negative: bruit present Thyroid: bilateral: normal size, negative: enlarged, nodule - Respiratory Respiratory: bilateral: CTA, negative: rales, rhonchi, wheezing - Cardiovascular Rhythm: regular Heart sounds: normal: S1, S2 Abnormal Heart Sounds: Absent: systolic murmur, diastolic murmur - Gastrointestinal General gastrointestinal: Present: normal bowel sounds, soft. Absent: distended, organomegaly, tenderness - Genitourinary Genitourinary Comment(s): deferred - Integumentary Integumentary: Present: normal turgor. Absent: jaundiced, rash, ulcer - Neurologic Neurologic: Present: CNII-XII intact. Absent: focal deficits - Musculoskeletal Musculoskeletal: Present: gait normal, strength equal bilaterally - Psychiatric Psychiatric: Present: A&O x's 3, appropriate affect, intact judgment & insight Results CBC & Chem 7: 02/05/22 17:42 02/05/22 17:42 Assessment and Plan Assessment: 1. Chest pain/EKG changes - EKG completed in ED diffuse T-wave inversions in V1 and V2; we will admit to cardiac telemetry and monitor cardiac enzymes every 4 hours 3; continue to monitor EKG; recommend 2-D echo - Patient will remain on aspirin 325 mg daily along with statin therapy in form of Lipitor 20 mg daily - Cardiology is consulted for further recommendations 2. Diabetes mellitus type 2; patient takes glipizide 20 mg daily; we will hold off on oral hypoglycemic therapy while inpatient -- we will monitor Accu-Cheks every before meals and at bedtime and make further recommendations 3. Hyperlipidemia; Lipitor 20 mg by mouth daily at bedtime 4. Hypertension; blood pressure remained stable; patient is currently on Aldactone 20 and Lasix 20 mg daily 5. Bipolar disorder; Zoloft 25 mg daily along with Lamictal 25 mg every morning and 100 mg every evening; Neurontin 100 mg by mouth 3 times a day DVT prophylaxis; SCDs CODE STATUS; full code
[2022-02-06] MEDS: SPIRONOLACTONE 25 MG TAB PO SCH (10:05)
[2022-02-06] MEDS: ASPIRIN 325 MG TAB PO SCH (10:05)
[2022-02-06] MEDS: SERTRALINE 25 MG TAB PO SCH (10:05)
[2022-02-06] MEDS: FUROSEMIDE 20 MG TAB PO SCH (10:05)
[2022-02-06] MEDS: lamoTRIgine 25 MG TAB PO SCH (10:05)
[2022-02-06] MEDS: lamoTRIgine 100 MG TAB PO SCH (10:05)
[2022-02-06] MEDS: GABAPENTIN 100 MG CAP PO SCH ×3 (10:05→20:22)
[2022-02-06] MEDS: FERROUS SULFATE 325 MG TAB PO SCH (12:27)
[2022-02-06] MEDS: ATORVASTATIN 20 MG TAB PO SCH (12:27)
--- NOTE | 2022-02-06 13:25 | CA ---
Transthoracic Echo Report Name: Kelley Kim Age: 61 Gender: F : 1960 Exam Date: 02/06/2022 09:47 Exam Location: [facility] Ht (in): 61 Wt (lb): 230 Ordering Physician: Josiah Obregon MD ([id number]) Attending/Referring Phys: Sabas HAILE Store Clerk Hillary Angela RDCS Procedure CPT: Indications: Chest Pain Cardiac Hx: Technical Quality: Fair Contrast 1: Total Dose (mL): Contrast 2: Total Dose (mL): MEASUREMENTS (Male / Female) Normal Values 2D ECHO LV Diastolic Diameter PLAX 4.4 cm 4.2 - 5.9 / 3.9 - 5.3 cm LV Systolic Diameter PLAX 3.3 cm IVS Diastolic Thickness 0.9 cm 0.6 - 1.0 / 0.6 - 0.9 cm LVPW Diastolic Thickness 1.0 cm 0.6 - 1.0 / 0.6 - 0.9 cm LV Relative Wall Thickness 0.4 RV Internal Dim ED PLAX 3.3 cm LA Volume 65.3 cm??? 18 - 58 / 22 - 52 cm??? M-MODE Aortic Root Diameter MM 2.9 cm LA Systolic Diameter MM 3.8 cm LA Ao Ratio MM 1.3 AV Cusp Separation MM 1.8 cm DOPPLER AV Peak Velocity 168.9 cm/s AV Peak Gradient 11.4 mmHg AI Peak Velocity 372.8 cm/s AI Peak Gradient 55.6 mmHg AI Pressure Half Time 441.2 ms LVOT Peak Velocity 126.4 cm/s LVOT Peak Gradient 6.4 mmHg MV Area PHT 4.1 cm??? Mitral E Point Velocity 112.2 cm/s Mitral A Point Velocity 99.0 cm/s Mitral E to A Ratio 1.1 MV Deceleration Time 183.1 ms MV E' Velocity 6.8 cm/s Mitral E to MV E' Ratio 16.5 TR Peak Velocity 264.8 cm/s TR Peak Gradient 28.1 mmHg Right Ventricular Systolic Press 32.6 mmHg FINDINGS Left Ventricle Mildly increased left ventricular wall thickness. Normal left ventricular systolic function with no obvious regional wall motion abnormalities. Left ventricular ejection fraction is estimated at 55-60 %. Right Ventricle Normal right ventricular size and function. Right ventricular systolic pressure within normal limits. Right Atrium Normal right atrial size. Left Atrium Mild left atrial dilatation. Mitral Valve Mild mitral regurgitation. Aortic Valve Trileaflet aortic valve. No aortic stenosis. Trace to mild aortic regurgitation. Tricuspid Valve Mild tricuspid regurgitation. Pulmonic Valve Structurally normal pulmonic valve. Trace pulmonic regurgitation. Pericardium No pericardial effusion. Aorta Normal size aortic root and proximal ascending aorta. CONCLUSIONS Normal LV systolic function. Mild mitral regurgitation. Mild tricuspid regurgitation Previewed by: Dr. Josiah Obregon MD (Electronically Signed) Final Date: 06 February 2022 13:24
[2022-02-06 17:29] LABS: Glucose,Whole Blood 103 mg/dL (70-110)
[2022-02-06] MEDS ORDERED: ACETAMINOPHEN TAB 325 MG TAB PO PRN (17:33)
[2022-02-07] MEDS: NITROGLYCERIN OINT 1 INCH/GM PACKET TOPICAL SCH ×3 (00:46→12:21)
[2022-02-07] MEDS ORDERED: glipiZIDE 10 MG TAB PO SCH (09:00)
[2022-02-07] MEDS: GABAPENTIN 100 MG CAP PO SCH (09:01)
[2022-02-07] MEDS: FUROSEMIDE 20 MG TAB PO SCH (09:01)
[2022-02-07] MEDS: lamoTRIgine 100 MG TAB PO SCH (09:01)
[2022-02-07] MEDS: ASPIRIN 325 MG TAB PO SCH (09:01)
[2022-02-07] MEDS: SPIRONOLACTONE 25 MG TAB PO SCH (09:01)
[2022-02-07] MEDS: SERTRALINE 25 MG TAB PO SCH (09:01)
[2022-02-07] MEDS: lamoTRIgine 25 MG TAB PO SCH (09:01)
[2022-02-07] MEDS: FERROUS SULFATE 325 MG TAB PO SCH (12:20)
[2022-02-07] MEDS: ATORVASTATIN 20 MG TAB PO SCH (12:20)
--- NOTE | 2022-02-07 12:55 | PN ---
PROGRESS NOTE Kelley is a 61-year-old lady is admitted to hospital with chest pain. She ruled out for myocardial infarction. Had T-wave inversions in leads V1 and V2. I have found an old EKG from the stress testing. Her T-wave inversions were always there. An echocardiogram showed normal LV function and wall motion. This morning she is doing well and is free of significant cardiac symptoms. EXAM: Comfortable at rest. Vital signs are stable. There is no jugular venous distention. Carotid upstroke is normal. There is no bruit. Chest exam reveals good air entry bilaterally. Heart exam reveals first and second heart sounds. No gallop. No murmur. Abdomen is soft, nontender. Examination of extremities did not reveal any edema. Peripheral pulses are felt. ASSESSMENT: Atypical chest pain. Precordial pain. myocardial infarction ruled out. Echo appears normal. Stable for discharge and an outpatient stress test. MMODL / IJN: [id number] /
[2022-02-07 14:50] VITALS: BP 120/73; PULSE 70; RESP 17; TEMP 98.2
--- NOTE | 2022-02-07 14:53 | P.PN ---
Subjective Progress Note Date: 02/06/22 61-year-old female who presents emergency Department with chest pain intermittently all day. Patient states the pain is definitely worse with exertion. Patient states she's also short of breath when she exerts herself. Patient states she's been told in the past she's had a heart attack she is a diabetic and does have high blood pressure high cholesterol. Patient denies any smoking history. Patient denies any recent fever chills or cough per patient states she's fully vaccinated for COVID. Patient states while she lies in bed here she still feels a little bit of pressure but it is not as significant as it is when she is up and exerting herself. Patient states the pain sometimes radiates to her back. She denies any abdominal pain. Patient denies any nausea or vomiting. Patient denies any lightheadedness dizziness or near syncopal episode. Patient denies any swelling to the leg swelling or calf tenderness. Patient used to live in [place] in the past that she had extensive workup for her chest pain including the stress test echocardiogram and apparently a cardiac catheterization more than 5 years ago and was told she does not have significant obstructive CAD but has mitral and tricuspid regurgitation. She was admitted to hospital here in 2018 and at that time had a Lexiscan that did not reveal any ischemia. She has not had any other cardiac workup. EKG shows sinus rhythm at 69 bpm [place] interval 141 QRS is under 12 QT interval 410 QTC is 4:30. Patient's EKG shows no ST segment elevation or depression however there is T-wave inversions in V1 and V2. Chest x-ray shows no acute abnormality. Patient has been evaluated by cardiology; 3 sets of cardiac enzymes are negative; EKG reveals T-wave inversions in V1 and V2; 2-D echocardiogram was completed; cardiology recommending patient discharge home if echocardiogram is stable Objective - Vital Signs Vital signs: Vital Signs Temp 97.8 F 02/06/22 14:05 Pulse 75 02/06/22 14:05 Resp 19 02/06/22 14:05 BP 113/62 02/06/22 14:05 Pulse Ox 91 L 02/06/22 14:05 FiO2 Intake & Output 02/05/22 02/06/22 02/06/22 18:59 06:59 18:59 Intake Total 180 Balance 180 Weight 104.326 kg Intake: Oral 180 Other: # Voids 2 - Exam - Constitutional General appearance: Present: average body habitus, cooperative, no acute distress - EENT Eyes: Present: anicteric sclerae, EOMI, PERRLA, normal appearance ENT: Present: hearing grossly normal, normal oropharynx Ears: bilateral: normal - Neck Neck: Present: normal ROM. Absent: lymphadenopathy, rigidity, thyromegaly Carotids: negative: bruit present Thyroid: bilateral: normal size, negative: enlarged, nodule - Respiratory Respiratory: bilateral: CTA, negative: rales, rhonchi, wheezing - Cardiovascular Rhythm: regular Heart sounds: normal: S1, S2 Abnormal Heart Sounds: Absent: systolic murmur, diastolic murmur - Gastrointestinal General gastrointestinal: Present: normal bowel sounds, soft. Absent: distended, organomegaly, tenderness - Genitourinary Genitourinary Comment(s): deferred - Integumentary Integumentary: Present: normal turgor. Absent: jaundiced, rash, ulcer - Neurologic Neurologic: Present: CNII-XII intact. Absent: focal deficits - Musculoskeletal Musculoskeletal: Present: gait normal, strength equal bilaterally - Psychiatric Psychiatric: Present: A&O x's 3, appropriate affect, intact judgment & insight - Labs CBC & Chem 7: 02/05/22 17:42 02/06/22 05:19 Labs: Abnormal Lab Results - Last 24 Hours (Table) 02/06/22 Range/Units 05:19 Potassium 3.4 L (3.5-5.5) mmol/L Triglycerides 155.00 H (0.00-149.00) mg/dL HDL Cholesterol 39.40 L (40.00-60.00) mg/dL Assessment and Plan Assessment: 1. Chest pain/EKG changes - EKG completed in ED diffuse T-wave inversions in V1 and V2; we will admit to cardiac telemetry and monitor cardiac enzymes every 4 hours 3; continue to monitor EKG; recommend 2-D echo - Patient will remain on aspirin 325 mg daily along with statin therapy in form of Lipitor 20 mg daily - Cardiology is consulted for further recommendations 2. Diabetes mellitus type 2; patient takes glipizide 20 mg daily; we will hold off on oral hypoglycemic therapy while inpatient -- we will monitor Accu-Cheks every before meals and at bedtime and make further recommendations 3. Hyperlipidemia; Lipitor 20 mg by mouth daily at bedtime 4. Hypertension; blood pressure remained stable; patient is currently on Aldactone 20 and Lasix 20 mg daily 5. Bipolar disorder; Zoloft 25 mg daily along with Lamictal 25 mg every morning and 100 mg every evening; Neurontin 100 mg by mouth 3 times a day DVT prophylaxis; SCDs CODE STATUS; full code
--- NOTE | 2022-02-07 14:55 | P.DS ---
Providers Date of admission: 02/05/22 18:28 Expected date of discharge: 02/07/22 Attending physician: Carly Simpson Consults: 02/05/22 18:18 Consult Physician Urgent Consulting Provider: [facility] Consult Reason/Comments: Chest pain Do you want consulting provider notified?: Yes Primary care physician: Wade Kemp [facility] Course: 61-year-old female who presents emergency Department with chest pain intermittently all day. Patient states the pain is definitely worse with exertion. Patient states she's also short of breath when she exerts herself. Patient states she's been told in the past she's had a heart attack she is a diabetic and does have high blood pressure high cholesterol. Patient denies any smoking history. Patient denies any recent fever chills or cough per patient states she's fully vaccinated for COVID. Patient states while she lies in bed here she still feels a little bit of pressure but it is not as significant as it is when she is up and exerting herself. Patient states the pain sometimes radiates to her back. She denies any abdominal pain. Patient denies any nausea or vomiting. Patient denies any lightheadedness dizziness or near syncopal episode. Patient denies any swelling to the leg swelling or calf tenderness. Patient used to live in [place] in the past that she had extensive workup for her chest pain including the stress test echocardiogram and apparently a cardiac catheterization more than 5 years ago and was told she does not have significant obstructive CAD but has mitral and tricuspid regurgitation. She was admitted to hospital here in 2018 and at that time had a Lexiscan that did not reveal any ischemia. She has not had any other cardiac workup. EKG shows sinus rhythm at 69 bpm [place] interval 141 QRS is under 12 QT interval 410 QTC is 4:30. Patient's EKG shows no ST segment elevation or depression however there is T-wave inversions in V1 and V2. Chest x-ray shows no acute abnormality. Cardiology evaluated patient and ordered echocardiogram with recommendations to discharge patient if echocardiogram is stable and to complete a stress test as an outpatient Echocardiogram reveals normal LV systolic function with mild mitral and tricuspid regurg; no further recommendations per cardiology and patient is to be discharged with recommendations to follow-up with PCP and primary secretary receptionist for a stress test Plan - Discharge Summary Discharge Rx Participant: No New Discharge Prescriptions: No Action glipiZIDE [Glipizide] 20 mg PO DAILY Furosemide 20 mg PO DAILY lamoTRIgine [LaMICtal] 100 mg PO DAILY lamoTRIgine [LaMICtal] 25 mg PO DAILY Rosuvastatin Calcium [Crestor] 10 mg PO DAILY@1200 Diclofenac Sodium Gel [Voltaren Gel] 1 applic TOPICAL TID PRN PRN Reason: KNEES Acetaminophen [Tylenol Extra Strength] 1,500 mg PO Q6H PRN PRN Reason: Pain Sertraline [Zoloft] 25 mg PO DAILY Gabapentin [Neurontin] 100 mg PO TID Spironolactone 25 mg PO DAILY Ferrous Sulfate [Iron] 325 mg PO DAILY@1200 Menthol [Biofreeze] 1 applic TOPICAL TID PRN PRN Reason: KNEES Discharge Medication List Furosemide 20 mg PO DAILY 03/07/15 [History] glipiZIDE [Glipizide] 20 mg PO DAILY 03/07/15 [History] Rosuvastatin Calcium [Crestor] 10 mg PO DAILY@1200 05/22/15 [History] lamoTRIgine [LaMICtal] 25 mg PO DAILY 05/22/15 [History] lamoTRIgine [LaMICtal] 100 mg PO DAILY 05/22/15 [History] Acetaminophen [Tylenol Extra Strength] 1,500 mg PO Q6H PRN 02/05/22 [History] Diclofenac Sodium Gel [Voltaren Gel] 1 applic TOPICAL TID PRN 02/05/22 [History] Ferrous Sulfate [Iron] 325 mg PO DAILY@1200 02/05/22 [History] Gabapentin [Neurontin] 100 mg PO TID 02/05/22 [History] Menthol [Biofreeze] 1 applic TOPICAL TID PRN 02/05/22 [History] Sertraline [Zoloft] 25 mg PO DAILY 02/05/22 [History] Spironolactone 25 mg PO DAILY 02/05/22 [History] Follow up Appointment(s)/Referral(s): Wade Kemp MD [Primary Care Provider] - 1-2 days
== END 2022-02-07 16:24 | disposition home or self-care (01) ==
LOC: EC 16:24 → 6NMEDSUR 18:28
PROVIDERS: ADMIT Hospitalist; ATTEND Hospitalist
DX: R07.89 Other chest pain (principal); R94.31 Abnormal electrocardiogram [ECG] [EKG]; R07.2 Precordial pain; E11.9 Type 2 diabetes mellitus without complications; E78.5 Hyperlipidemia, unspecified; E78.00 Pure hypercholesterolemia, unspecified; I08.1 Rheumatic disorders of both mitral and tricuspid valves; R06.02 Shortness of breath; I10 Essential (primary) hypertension; K21.9 Gastro-esophageal reflux disease without esophagitis; D64.9 Anemia, unspecified; I83.90 Asymptomatic varicose veins of unspecified lower extremity; F31.9 Bipolar disorder, unspecified; I25.2 Old myocardial infarction; Z79.899 Other long term (current) drug therapy; Z79.84 Long term (current) use of oral hypoglycemic drugs; Z88.0 Allergy status to penicillin; Z88.5 Allergy status to narcotic agent; Z85.828 Personal history of other malignant neoplasm of skin; Z90.710 Acquired absence of both cervix and uterus; Z90.49 Acquired absence of other specified parts of digestive tract; Z98.84 Bariatric surgery status; Z96.653 Presence of artificial knee joint, bilateral; Z98.890 Other specified postprocedural states; Z80.0 Family history of malignant neoplasm of digestive organs
CPT/HCPCS: 99285; 36415; 93005; 93306; 85379; 80061; 80053; 80048; 83735; 84484; 85025; 85610; 85730; 71046; G0378 ×3

== ENCOUNTER → 2022-03-03 | Outpatient (CLI) | payer OTHER ==
--- NOTE | 2022-03-03 16:50 | MM ---
Reason for Exam: Clinical finding. Last mammogram was performed 4 year(s) and 1 month(s) ago. Patient History: Menarche at age 7. First Full-Term at age 14. Left ovary removed at age 28. Right ovary removed at age 28. Hysterectomy at age 28. Postmenopausal. Other cancer. Unspecified Hormone, from age 27 until age 55. 1999, Reduction. Sister had breast cancer, age 39. Sister had breast cancer, age 32. Risk Values: Araceli 5 year model risk: 7.7%. NCI Lifetime model risk: 32.0%. Tissue Density: There are scattered fibroglandular densities. Findings: Analyzed By CAD. Lateral asymmetric density left breast is unchanged. Additional areas of asymmetric density and nodularity remain unchanged. No significant change from prior exams. External metal projects far posterior medial right CC view and is cleared on an XCCM view. Overall Assessment: Benign, BI-RAD 2 Management: Screening Mammogram of both breasts in 1 year. 1. Recommend further clinical examination of the patient's soft, palpable site located on the chest wall. Consider referring the patient for a soft tissue ultrasound. 2. We note a lifetime risk of developing breast cancer at 32%. The patient may qualify for alternating breast screening MRI and screening mammograms at six-month intervals. 3. Patient should continue monthly self breast exams. A clinical breast exam by your physician is recommended on an annual basis. 4. This exam should not preclude additional follow-up of suspicious palpable abnormalities. Results were given to the patient verbally at the time of exam. Electronically signed and approved by: Yolie Eddy M.D. Radiologist
== END | disposition home or self-care (01) ==
LOC: RADMAMWWP 12:50
PROVIDERS: ATTEND Family Medicine
DX: N63.0 Unspecified lump in unspecified breast (principal); Z78.0 Asymptomatic menopausal state; Z85.89 Personal history of malignant neoplasm of other organs and systems; Z80.3 Family history of malignant neoplasm of breast
CPT/HCPCS: 77066; G0279; 77062

== ENCOUNTER 2022-06-30 20:05 | Emergency (ER) | payer OTHER ==
[2022-06-30 20:54] VITALS: BP 129/74; PULSE 86; RESP 16; TEMP 98.5
--- NOTE | 2022-06-30 21:22 | XR ---
EXAMINATION TYPE: XR knee complete LT DATE OF EXAM: 06/30/2022 9:13 PM INDICATION: Patient age:Female; 61 years old; Reason for study: knee pain post fall increase swelling; COMPARISON: None. TECHNIQUE: The Left knee(s) was examined in Frontal, lateral and oblique projections. FINDINGS: Left knee arthroplasty changes. Hardware appears intact. No evidence for fracture. No evid ence of loosening. No evidence of any acute osseous pathology, joint space narrowing, soft tissue swe lling, or joint effusion is noted. IMPRESSION: 1. No acute osseous pathology. 2. Total knee arthroplasty changes with hardware in appropriate position and intact.
--- NOTE | 2022-06-30 21:43 | ED ---
General Adult HPI - General Chief complaint: Syncope Stated complaint: Fall/lt knee injury post surgery Time Seen by Provider: 06/30/22 21:25 Source: patient, RN notes reviewed Mode of arrival: wheelchair Limitations: no limitations - History of Present Illness Initial comments: Patient had a total knee replacement last Tuesday and was sent home. Patient states on Tuesday she was reaching into a cupboard and actually passed out. Patient states she blacked out for an unknown amount of time. Patient states she sustained a head injury as well as striking the left knee. Patient states that she did not seek care that day. Patient states over the past few days she's had increasing pain to the left knee. Patient called her orthopedic surgeon was instructed to come to the ER for x-rays. As for the syncopal episode patient denied any other preceding symptomology other than the lightheadedness and passing out. Patient had no chest pain or p alpitations. No abdominal pain. Patient is on anticoagulation therapy and is complaining of a mild headache. No neck pain. no fever or chills, no changes in vision or hearing, no sore throat or di fficulty with speech, no neck pain, no chest pain or shortness of breath, no abdominal pain, no nausea or vomiting, no changes in urination or bowel movements, no numbness or tingling,, no skin rashes or lesions. Past medical, surgical, social, and family history reviewed. - Related Data Home Medications Medication Instructions Recorded Confirmed Furosemide 20 mg PO DAILY 03/07/15 02/05/22 glipiZIDE [Glipizide] 20 mg PO DAILY 03/07/15 02/05/22 Rosuvastatin Calcium [Crestor] 10 mg PO DAILY@1200 05/22/15 02/05/22 lamoTRIgine [LaMICtal] 25 mg PO DAILY 05/22/15 02/05/22 lamoTRIgine [LaMICtal] 100 mg PO DAILY 05/22/15 02/05/22 Acetaminophen [Tylenol Extra 1,500 mg PO Q6H PRN 02/05/22 02/05/22 Strength] Diclofenac Sodium Gel [Voltaren 1 applic TOPICAL TID PRN 02/05/22 02/05/22 Gel] Ferrous Sulfate [Iron] 325 mg PO DAILY@1200 02/05/22 02/05/22 Gabapentin [Neurontin] 100 mg PO TID 02/05/22 02/05/22 Menthol [Biofreeze] 1 applic TOPICAL TID PRN 02/05/22 02/05/22 Sertraline [Zoloft] 25 mg PO DAILY 02/05/22 02/05/22 Spironolactone 25 mg PO DAILY 02/05/22 02/05/22 Allergies Allergy/AdvReac Type Severity Reaction Status Date / Time codeine Allergy Rash/Hives Verified 02/05/22 18:32 oxycodone HCl [From Percocet] Allergy Itching Verified 02/05/22 18:32 Penicillins Allergy Anaphylaxis Verified 02/05/22 18:32 Review of Systems ROS Statement: Those systems with pertinent positive or pertinent negative responses have been documented in the HPI. ROS Other: All systems not noted in ROS Statement are negative. Past Medical History Past Medical History: Cancer, Chest Pain / Angina, Diabetes Mellitus, GERD/Reflux, Hyperlipidemia, Hypertension Additional Past Medical History / Comment(s): HX OF SKIN CA. 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,CURRENTLY HAVING LT KNEE PAIN History of Any Multi-Drug Resistant Organisms: None Reported Past Surgical History: Bariatric Surgery, Cholecystectomy, Hernia Repair, Hysterectomy, Joint Replacement, Orthopedic Surgery Additional Past Surgical History / Comment(s): BASAL CELL CA ON FACE REMOVED, TOTAL RIGHT KNEE, HX OF "STOMACH STAPLING", RT AXILLA GLANDS REMOVED BENIGN, HX OF ARTHROSCOPY LORENZO KNEES,TOT LT KNEE,STOMACH STAPLING Past Anesthesia/Blood Transfusion Reactions: No Reported Reaction Additional Past Anesthesia/Blood Transfusion Reaction / Comment(s): UNK FAMILY HX Past Psychological History: Bipolar, Depression Smoking Status: Never smoker Past Alcohol Use History: None Reported Past Drug Use History: None Reported - Past Family History Brother(s) Family Medical History: Cancer Additional Family Medical History / Comment(s): COLON Mother History Unknown: Yes Family Medical History: Unable to Obtain Additional Family Medical History / Comment(s): PATIENT WAS ADOPTED, DOES NOT KNOW FAMILY HX OTHER THAN BROTHER Father History Unknown: Yes General Exam - General Exam Comments Initial Comments: Overnight 4, cranial nerves II through XII are intact. Pat Coma Scale is 15. Patient does not appear to have any other significant orthopedic injuries. Head appears to be normocephalic/atraumatic. Limitations: no limitations General appearance: alert, in no apparent distress Head exam: Present: atraumatic, normocephalic, normal inspection Eye exam: Present: normal appearance, PERRL, EOMI. Absent: scleral icterus, conjunctival injection, periorbital swelling ENT exam: Present: normal exam, mucous membranes moist, normal external ear exam Neck exam: Present: normal inspection, full ROM. Absent: tenderness, meningismu s, lymphadenopathy Respiratory exam: Present: normal lung sounds bilaterally. Absent: respiratory distress, wheezes, rales, rhonchi, stridor, chest wall tenderness, accessory muscle use Cardiovascular Exam: Present: regular rate, normal rhythm, normal heart sounds. Absent: systolic murmur, diastolic murmur, rubs, gallop, clicks GI/Abdominal exam: Present: soft, normal bowel sounds. Absent: distended, tenderness, guarding, rebound, rigid Extremities exam: Present: normal inspection, full ROM, tenderness (The anterior aspect of the left knee. Some swelling. No erythema. No break in skin in tegrity. Incision healing well. No distal proximal tenderness. Pulses intact), normal capillary refill. Absent: pedal edema, joint swelling, calf tenderness Back exam: Present: normal inspection. Absent: tenderness, paraspinal tenderness, vertebral tenderness, rash noted Neurological exam: Present: alert, oriented X3, CN II-XII intact, normal gait. Absent: altered, motor sensory deficit Psychiatric exam: Present: normal affect, normal mood Skin exam: Present: warm, dry, intact, normal color. Absent: rash, cyanosis, diaphoretic, erythema, urticaria, vesicles, petechiae, pallor, mottled, abrasion Course Vital Signs 06/30/22 20:46 Temperature 98.5 F Pulse Rate 86 Respiratory 16 Rate Blood Pressure 129/74 O2 Sat by Pulse 96 Oximetry - Reevaluation(s) Reevaluation #1: 06/30/22 23:10 Medical record is reviewed Symptoms are improved here in the emergency department Patient is informed of results and questions answered Patient in no distress Medical Decision Making - Medical Decision Making Patient's syncopal episode and subsequent head injury and left knee injury were on Tuesday. However the patient is on anticoagulation therapy. Given the fact patient does have a headache and sustained a head injury. I believe CT scanning is in order. Plain film x-rays of left knee independently read by me reveal no evidence of acute bony pathology. Surgical appliance in place. Reviewed radiology interpretation. Independent review of the plain film x-rays, CT of the head by me reveals no evidence of acute pathology. I did review the radiology interpretation. Patient's syncopal episode was a remote event. Patient's workup here was essentially negative. No elevation of the white blood cell count. Symptoms of the left knee did not appear to be infectious in etiology. Likely a contusion. We'll have the patient follow up with her orthopedic physician. All findings discussed with the patient. CBC was normal, CMP essentially unremarkable for any significant pathology. CO2 was 31, by mouth and was 18. Serum alcohol negative. Urinalysis was pending. However the patient did not want to wait for this diagnostic. The case was discussed in detail with ED attending physician. Presentation, findings, treatment plan discussed in detail. Patient was told to return to the ER for any signs or symptoms worsen. Told to return immediately if any other problems arise. All questions answered. Treatment plan discussed. Patient in agreement Every effort has been made to ensure accuracy of this dictation. However, due to the limitations of electronic medical records and dictation devices, errors in charting still occur. Supervising physician Dr. Lucero - Lab Data Result diagrams: 06/30/22 22:22 06/30/22 22:23 Lab Results 06/30/22 06/30/22 06/30/22 Range/Units 22:22 22:22 22:23 WBC 6.4 (3.8-10.6) k/uL RBC 4.45 (3.80-5.40) m/uL Hgb 13.7 (11.4-16.0) gm/dL Hct 39.3 (34.0-46.0) % MCV 88.3 (80.0-100.0) fL MCH 30.8 (25.0-35.0) pg MCHC 34.9 (31.0-37.0) g/dL RDW 13.0 (11.5-15.5) % Plt Count 263 (150-450) k/uL MPV 7.2 Neutrophils % 56 % Lymphocytes % 33 % Monocytes % 5 % Eosinophils % 5 % Basophils % 1 % Neutrophils # 3.6 (1.3-7.7) k/uL Lymphocytes # 2.1 (1.0-4.8) k/uL Monocytes # 0.3 (0-1.0) k/uL Eosinophils # 0.3 (0-0.7) k/uL Basophils # 0.0 (0-0.2) k/uL PT 9.7 (9.0-12.0) sec INR 0.9 (<1.2) APTT 26.2 (22.0-30.0) sec Sodium (137-145) mmol/L Potassium (3.5-5.1) mmol/L Chloride (98-107) mmol/L Carbon Dioxide (22-30) mmol/L Anion Gap mmol/L BUN (7-17) mg/dL Creatinine (0.52-1.04) mg/dL Est GFR (CKD-EPI)AfAm (>60 ml/min/1.73 sqM) Est GFR (CKD-EPI)NonAf (>60 ml/min/1.73 sqM) Glucose (74-99) mg/dL Calcium (8.4-10.2) mg/dL Total Bilirubin (0.2-1.3) mg/dL AST (14-36) U/L ALT (4-34) U/L Alkaline Phosphatase (38-126) U/L Troponin I (0.000-0.034) ng/mL Total Protein (6.3-8.2) g/dL Albumin (3.5-5.0) g/dL Serum Alcohol mg/dL Blood Type O Positive Blood Type Recheck No Previous Record Bld Type Recheck Status CABO Indicated Antibody Screen NEGATIVE Spec Expiration Date 07/03/2022232106/30/22 06/30/22 Range/Units 22:23 22:23 WBC (3.8-10.6) k/uL RBC (3.80-5.40) m/uL Hgb (11.4-16.0) gm/dL Hct (34.0-46.0) % MCV (80.0-100.0) fL MCH (25.0-35.0) pg MCHC (31.0-37.0) g/dL RDW (11.5-15.5) % Plt Count (150-450) k/uL MPV Neutrophils % % Lymphocytes % % Monocytes % % Eosinophils % % Basophils % % Neutrophils # (1.3-7.7) k/uL Lymphocytes # (1.0-4.8) k/uL Monocytes # (0-1.0) k/uL Eosinophils # (0-0.7) k/uL Basophils # (0-0.2) k/uL PT (9.0-12.0) sec INR (<1.2) APTT (22.0-30.0) sec Sodium 139 (137-145) mmol/L Potassium 3.7 (3.5-5.1) mmol/L Chloride 100 (98-107) mmol/L Carbon Dioxide 31 H (22-30) mmol/L Anion Gap 8 mmol/L BUN 18 H (7-17) mg/dL Creatinine 0.73 (0.52-1.04) mg/dL Est GFR (CKD-EPI)AfAm >90 (>60 ml/min/1.73 sqM) Est GFR (CKD-EPI)NonAf 89 (>60 ml/min/1.73 sqM) Glucose 93 (74-99) mg/dL Calcium 9.1 (8.4-10.2) mg/dL Total Bilirubin 0.6 (0.2-1.3) mg/dL AST 20 (14-36) U/L ALT 16 (4-34) U/L Alkaline Phosphatase 106 (38-126) U/L Troponin I <0.012 (0.000-0.034) ng/mL Total Protein 6.9 (6.3-8.2) g/dL Albumin 4.0 (3.5-5.0) g/dL Serum Alcohol <10 mg/dL Blood Type Blood Type Recheck Bld Type Recheck Status Antibody Screen Spec Expiration Date - EKG Data EKG Comments: Independent interpretation of EKG at 2236 by me reveals sinus rhythm with a rate of 79. Normal intervals, normal axis, no evidence of acute ST elevation or depression. Some baseline artifact noted. Patient did have T-wave inversions noted in V1, V2, V3. T-wave flattening elsewhere. When compared to the previous EKG from 02/06/2022 there is no significant change. - Radiology Data Radiology results: report reviewed, image reviewed Independent review of the plain film x-rays, CT of the head by me reveals no evidence of acute pathology. I did review the radiology interpretation. Disposition Clinical Impression: Syncope, Contusion of left knee Narrative: Recent left knee surgery Disposition: HOME SELF-CARE Condition: Good Instructions (If sedation given, give patient instructions): Syncope (ED), Knee Pain (ED) Additional Instructions: Call your orthopedic surgeon in the morning for further guidance. Ice 20 minutes on and off for times daily. Elevation. Follow-up with your regular physician as directed. Return to the ER immediately if any symptoms worsen, new symptoms arise, or any other problems develop. Is patient prescribed a controlled substance at d/c from ED?: No Referrals: Wade Kemp MD [Primary Care Provider] - 1-2 days Time of Disposition: 23:28
--- NOTE | 2022-06-30 21:52 | XR ---
EXAMINATION TYPE: XR chest 1V DATE OF EXAM: 06/30/2022 9:48 PM COMPARISON: Chest radiographs from 02/05/2022 TECHNIQUE: XR chest 1V Frontal view of the chest. CLINICAL INDICATION:Female, 61 years old with history of Syncope; FINDINGS: Lungs/Pleura: There is no evidence of pleural effusion, focal consolidation, or pneumothorax. Pulmonary vascularity: Unremarkable. Heart/mediastinum: Cardiomediastinal silhouette is unremarkable. Musculoskeletal: No acute osseous pathology. IMPRESSION: No acute cardiopulmonary disease/process.
--- NOTE | 2022-06-30 22:01 | CT ---
EXAMINATION TYPE: CT brain wo con CT DLP: 1182.4 mGycm, Automated exposure control for dose reduction was used. DATE OF EXAM: 06/30/2022 9:48 PM COMPARISON: None. CLINICAL INDICATION:Female, 61 years old with history of trauma/closed head injury, pain after fall x few days ago. pt on anticoagulant TECHNIQUE: Brain: Axial CT images of the brain were obtained with coronal and sagittal reformats created and rev iewed. Contrast used: None. Oral contrast used: None. FINDINGS: Brain: Extra-axial spaces: No abnormal extra-axial fluid collections. Ventricular system: Within normal limits Cerebral parenchyma: No acute intraparenchymal hemorrhage or mass effect. The arango-white junction is well differentiated. Cerebellum: Unremarkable. Mass effect: No evidence of midline shift. Intracranial vasculature: unremarkable Soft tissues: Normal. Calvarium/osseous structures: No depressed skull fracture. Paranasal sinuses and mastoid air cells: Mild scattered paranasal sinus disease. Visualized orbits: Orbital contents are intact. IMPRESSION: No acute intracranial process.
[2022-06-30 22:34] LABS: Basophils % (A) 1 %; Eosinophils # (A) 0.3 k/uL (0-0.7); Eosinophils % (A) 5 %; HCT 39.3 % (34.0-46.0); HGB 13.7 gm/dL (11.4-16.0); Lymphocytes # (A) 2.1 k/uL (1.0-4.8); Lymphocytes % (A) 33 %; MCH 30.8 pg (25.0-35.0); MCHC 34.9 g/dL (31.0-37.0); MCV 88.3 fL (80.0-100.0); Mean Platelet Volume 7.2; Monocytes # (A) 0.3 k/uL (0-1.0); Monocytes % (A) 5 %; Neutrophils # (A) 3.6 k/uL (1.3-7.7); Neutrophils % (A) 56 %; Platelet Count 263 k/uL (150-450); RBC 4.45 m/uL (3.80-5.40); WBC 6.4 k/uL (3.8-10.6)
[2022-06-30 22:44] LABS: ALT 16 U/L (4-34); AST 20 U/L (14-36); African American GFR (CKD) >90 (>60 ml/min/1.73 sqM); Alcohol <10 mg/dL; Alkaline Phosphatase 106 U/L (38-126); Anion Gap 8 mmol/L; Blood Urea Nitrogen 18 mg/dL (7-17); Calcium 9.1 mg/dL (8.4-10.2); Carbon Dioxide 31 mmol/L (22-30); Chloride 100 mmol/L (98-107); Glucose 93 mg/dL (74-99); Non-African American GFR(CKD) 89 (>60 ml/min/1.73 sqM); Potassium 3.7 mmol/L (3.5-5.1); Sodium 139 mmol/L (137-145); Total Bilirubin 0.6 mg/dL (0.2-1.3); Total Protein 6.9 g/dL (6.3-8.2)
[2022-06-30 22:55] LABS: INR 0.9 (<1.2); Partial Thromboplastin Time 26.2 sec (22.0-30.0); Prothrombin Time 9.7 sec (9.0-12.0)
[2022-06-30 23:40] LABS: Cocaine Screen,Urine Not Detected (NotDetected); Phencyclidine Screen,Urine Not Detected (NotDetected); Urn Cannabinoid Scrn Not Detected (NotDetected)
[2022-06-30 23:41] LABS: Amphetamine Screen,Urine Not Detected (NotDetected); Barbiturate Screen,Urine Not Detected (NotDetected); Benzodiazepines Screen,Urine Detected (NotDetected); Methadone Screen, Urine Not Detected (NotDetected); Opiate Screen,Urine Detected (NotDetected); Oxycodone Screen, Urine Not Detected (NotDetected); Tricyclic Antidepressant,Urine Detected (NotDetected)
== END 2022-06-30 23:38 | disposition home or self-care (01) ==
LOC: EC 20:05
DX: S89.92XA Unspecified injury of left lower leg, initial encounter (principal); R55 Syncope and collapse; E11.9 Type 2 diabetes mellitus without complications; I10 Essential (primary) hypertension; Z88.0 Allergy status to penicillin; Z88.5 Allergy status to narcotic agent; Z88.8 Allergy status to other drugs, medicaments and biological substances; X58.XXXA Exposure to other specified factors, initial encounter
CPT/HCPCS: 36415; 93005; 86900; 86901; 80053; 84484; 85025; 85610; 85730; 86850; 80306; 73562; 71045; 70450; 99284; G0480; 80320